=== PATIENT | male | born 1965 | race Caucasian/White ===

== ENCOUNTER 2022-04-27 16:12 | Emergency (ER) | payer OTHER ==
[~2022-04-27 16:12] MED LIST: AMLODIPINE BES2.5 MG PO; ATORVASTATIN CA20 MG PO; BACITRACIN3.5 GM TOP; GLIPIZIDE ER5 MG PO; GLUCOPHAGE500 MG PO; LISINOPRIL-HCT1 EAC2 PO; NORCO 10-325 T1 EACH PO; TORADOL 10 MG T10 MG PO; ZESTRIL10 MG PO
[2022-04-27 18:06] LABS: HEMOGLOBIN 13.4 gm/dl (14.0-17.5); RED BLOOD COUNT 4.46 M/UL (4.20-5.50)
[2022-04-27 19:55] LABS: BUN/CREATININE RATIO 16 (0-10)
== END 2022-04-27 22:10 | disposition short-term general hospital (02) ==
LOC: ER1 16:12
PROVIDERS: Emergency Medicine
DX: T20.24XA Burn of second degree of nose (septum), initial encounter (principal); T22.20XA Burn of second degree of shoulder and upper limb, except wrist and hand, unspecified site, initial encounter; T21.21XA Burn of second degree of chest wall, initial encounter; T21.22XA Burn of second degree of abdominal wall, initial encounter; T31.33 Burns involving 30-39% of body surface with 30-39% third degree burns; E11.9 Type 2 diabetes mellitus without complications; F17.200 Nicotine dependence, unspecified, uncomplicated; T68.XXXA Hypothermia, initial encounter; X08.8XXA Exposure to other specified smoke, fire and flames, initial encounter; Z51.81 Encounter for therapeutic drug level monitoring
CPT/HCPCS: 31500; 36600; 71045; 80053; 80307; 81001; 82550; 82553; 82803; 82805; 83605; 84484; 85025; 85610; 85730; 86850; 86900; 86901; 94002; 94760; 99284; G0480; J2250; J2270; J2405; J2704; J3010